=== PATIENT | female | born 1995 | race Caucasian/White ===

== ENCOUNTER 2023-10-15 20:46 | Emergency (ER) | payer OTHER, SELFPAY ==
[2023-10-15 20:49] VITALS: BP 118/68; PULSE 64; RESP 12; TEMP 36.6; O2SAT 99; BMI 40.7
--- NOTE | 2023-10-15 21:11 | ED.DENTAL1 ---
HPI - Dental/Oral General Chief complaint: Dental/Oral Stated complaint: DENTAL PAIN Time Seen by Provider: 10/15/23 20:55 Source: patient Mode of arrival: walk-in Limitations: no limitations History of Present Illness HPI Narrative: Pain near tooth #30 which has a small area of fracture that is apparently from a long time ago . No systemic symptoms such as fever or vomiting. She does not have a dentist and has not called to find one. Related Data Home Medications Medication Instructions Recorded Confirmed liraglutide 0.6 mg/0.1 mL (18 mg/3 1.2 mg subcut DAILY 10/15/23 10/15/23 mL) subcutaneous pen injector (Uguruza 2-Pro) Previous Rx's Medication Instructions Recorded clindamycin HCl 150 mg capsule 450 mg (3 x 150 mg) PO TID 7 days 10/15/23 #63 caps nabumetone 750 mg tablet 750 mg PO BID PRN pain #14 tabs 10/15/23 Allergies Allergy/AdvReac Type Severity Reaction Status Date / Time No Known Drug Allergies Allergy Verified 10/15/23 20:58 [facility] Social History Smoking status: Former smoker Exam Narrative Exam Narrative: afebrile General: The patient is comfortable, alert and oriented x3, well appearing, non toxic in no apparent distress. Head: Atraumatic and normocephalic. Eyes: Normal conjunctiva ENT: The oropharynx is normal. No pharyngeal erythema, uvular edema, tonsillar exudates, asymmetry or trismus. Uvula is midline. Mouth is normal to inspection with the exception of a pain on percussion of the tooth #30 and evidence of dental caries. There is no evidence of facial asymmetry or abscess formation. Floor of the mouth is soft. No tenderness in the submental or submandibular space. No tongue elevation or deviation. The patient has no evidence of periapical abscess, gingivitis or other acute pathology. Airway is patent. Neck: The neck demonstrates normal range of motion. No meningeals signs are present. No stridor. No masses or lymphandenopathy noted. Respiratory: No acute distress, lungs are clear to auscultation, no wheezing, rhonchi, or rales noted. No stridor or retractions are noted. Cardiovascular: Regular rate and rhythm Skin: The skin exam shows no evidence of rashes Neuro: Alert and oriented x4, normal speech Lymphatic: No cervical lymphadenopathy Constitutional Vital Signs, click to edit/add: Last Vital Signs Temp 97.8 F 10/15/23 20:49 Pulse 64 10/15/23 20:49 Resp 12 10/15/23 20:49 BP 118/68 10/15/23 20:49 Pulse Ox 99 10/15/23 20:49 O2 Del Method Room Air 10/15/23 20:49 Course Vital Signs Vital signs: Vital Signs Temperature 97.8 F 10/15/23 20:49 Pulse Rate 64 10/15/23 20:49 Respiratory Rate 12 10/15/23 20:49 Blood Pressure 118/68 10/15/23 20:49 Pulse Oximetry 99 10/15/23 20:49 Oxygen Delivery Method Room Air 10/15/23 20:49 Temperature 97.8 F 10/15/23 20:49 Pulse Rate 64 10/15/23 20:49 Respiratory Rate 12 10/15/23 20:49 Blood Pressure 118/68 10/15/23 20:49 Pulse Oximetry 99 10/15/23 20:49 Oxygen Delivery Method Room Air 10/15/23 20:49 MDM - Dental/Oral MDM Narrative Medical decision making narrative: patient started on clindamycin, given an oral dose of Toradol and given topical dental anesthetic paste to apply to the area. Given dentist referral information and discharged home. Discharge Plan Discharge Chief Complaint: Dental/Oral Clinical Impression: Dental caries, Toothache, Fracture of tooth Patient Disposition: Home, Self-Care Time of Disposition Decision: 21:13 Prescriptions / Home Meds: New nabumetone 750 mg tablet 750 mg PO BID PRN (Reason: pain) Qty: 14 0RF clindamycin HCl 150 mg capsule 450 mg PO TID 7 Days Qty: 63 0RF No Action Victoza 2-Pro 0.6 mg/0.1 mL (18 mg/3 mL) pen injector 1.2 mg SUBCUT DAILY Instructions: Toothache (ED) Stand Alone Forms: Portal Instructions Referrals: [facility] [Primary Care Provider] - 1 week
[2023-10-15 21:12] VITALS: BMI 40.6
--- NOTE | 2023-10-15 21:13 | PC.NURSE ---
Patient given dental packet information.
--- NOTE | 2023-10-15 21:14 | PC.NURSE ---
Broken tooth to right lower jaw, patient reports pain to area and sensitivity with drinking.
[2023-10-15] MEDS: KETOROLAC TROMETHAMINE 10 MG TABLET PO (21:28)
[2023-10-15] MEDS: CLINDAMYCIN HCL 150 MG CAPSULE 450 MG PO (21:28)
[2023-10-15] MEDS: BENZOCAINE 30 ML, lidocaine HCL 15 ML MM (21:28)
== END 2023-10-15 21:39 | disposition home or self-care (01) ==
PROVIDERS: Emergency Provider Emergency Medicine
DX: K02.9 Dental caries, unspecified (principal); S02.5XXA Fracture of tooth (traumatic), initial encounter for closed fracture; K08.89 Other specified disorders of teeth and supporting structures; Z79.899 Other long term (current) drug therapy; Z87.891 Personal history of nicotine dependence
CPT/HCPCS: 99283

== ENCOUNTER 2024-12-04 10:36 | Outpatient (OUT) | payer OTHER, SELFPAY ==
[2024-12-04 12:05] LABS: Alanine Aminotransferase 64 U/L (14-59); Albumin Level 3.8 g/dL (3.4-5.0); Alkaline Phosphatase 75 U/L (46-116); Anion Gap 13.9; Aspartate Amino Transferase 24 U/L (15-37); Bilirubin Total 0.6 mg/dL (0.2-1.0); Calcium 8.9 mg/dL (8.5-10.1); Carbon Dioxide 25.1 mmol/L (21.0-32.0); Chloride 104 mmol/L (98-107); Chol HDL Ratio 4.4; Cholesterol 227 mg/dL (<=200); Estimated GFR (African America >60 (>=60 mL/min/1.73m^2); Estimated GFR (Non-African Ame >60 (>=60 mL/min/1.73m^2); Globulin 3.8 g/dL; Glucose 133 mg/dL (74-106); HDL Cholesterol 52 mg/dL (40-60); Sodium 139 mmol/L (136-145); TSH W/ REFLEX FT4 2.564 uIU/mL (0.358-3.740); Total Protein 7.6 g/dL (6.4-8.2); Triglycerides 103 mg/dL (<=150); VLDL CHOLESTEROL 20.6 mg/dL
[2024-12-04 12:38] LABS: Estimated Average Glucose 123 mg/dL; Glycohemoglobin A1C 5.9 % (4.5-6.2)
[2024-12-05 03:11] LABS: Vitamin B12 387 pg/mL (232-1245)
== END 2024-12-04 10:37 | disposition home or self-care (01) ==
PROVIDERS: Visit Provider Nurse Practitioner Family
DX: R73.03 Prediabetes (principal); Z86.59 Personal history of other mental and behavioral disorders; Z68.42 Body mass index [BMI] 45.0-49.9, adult; E55.9 Vitamin D deficiency, unspecified
CPT/HCPCS: 36415; 80053; 80061; 82306; 82607; 83036; 84443